=== PATIENT | male | born 1995 | race Hispanic/Latino ===

== ENCOUNTER 2021-07-24 15:08 | Day surgery (SDC) | payer SELFPAY ==
[2021-07-23 15:01] VITALS: BMI 25.0
[2021-07-24 16:18] LABS: #Eosinphils 0.1 thou/uL (0.0-0.7); #Lymphocytes 1.7 thou/uL (1.20-3.40); #Monocytes 0.6 thou/uL (0.11-0.59); #Neutrophils 4.2 thou/uL (1.40-6.50); %Basophils 0.2 % (0.0-1.0); %Eosinophils 1.2 % (0.0-10.0); %Lymphocytes 25.6 % (21.0-51.0); %Monocytes 8.5 % (0.0-10.0); %Neutrophils 64.5 % (42.0-75.0); Hemoglobin 15.8 g/dL (14.0-18.0); Mean Corpuscular HGB CONC 32.7 g/dL (32.0-36.0); Mean Corpuscular Volume 91.7 fL (78.0-98.0); Platelet Count 200 thou/uL (130-400); RBC Distribution Width 11.4 % (11.5-14.5); Red Blood Cell (RBC) Count 5.27 mill/uL (4.70-6.10); White Blood Cell (WBC) Count 6.4 thou/uL (4.8-10.8)
[2021-07-24 17:04] LABS: SARS-CoV-2 NAA Rapid Test Not Detected (NotDetected)
[2021-07-24] MEDS ORDERED: fentaNYL Citrate/PF 100 MCG/2 ML SYRINGE ONE (17:14)
[2021-07-24] MEDS ORDERED: CEFAZOLIN 2 GM VIAL ONE (17:26)
[2021-07-24] MEDS ORDERED: Sodium Chloride 0.9% 100 ML ONE (17:26)
[2021-07-24] MEDS ORDERED: Ketorolac Tromethamine 30 MG/ML VIAL ONE (17:35)
[2021-07-24] MEDS ORDERED: Lidocaine 1% PF 5 ML VIAL ONE (17:35)
[2021-07-24] MEDS ORDERED: Ondansetron PF 4 MG/2 ML Vial ONE (17:35)
[2021-07-24] MEDS ORDERED: Dexamethasone 20 MG/5 ML VIAL ONE (17:35)
[2021-07-24] MEDS ORDERED: PROPOFOL 200 MG/20 ML VIAL ONE (17:35)
[2021-07-24] MEDS ORDERED: PHENYLEPHRINE-NS 100 MCG/ML 10 ML SYRINGE ONE (17:35)
[2021-07-24] MEDS ORDERED: Bupivacaine PF 0.5% 30 ML VIAL ONE (17:42)
[2021-07-24] MEDS ORDERED: Neomycin-Polymyxin 1 ML AMP ONE (17:59)
[2021-07-24] MEDS ORDERED: Bacitracin Zinc Ointment 30 gm TUBE ONE (19:43)
== END 2021-07-24 20:55 | disposition home or self-care (01) ==
LOC: SDC 15:08
PROVIDERS: ATTEND Orthopaedic Surgery Hand Surgery
PROC: 0LQ70ZZ Repair Right Hand Tendon, Open Approach (ICD-10-PCS; principal; 2021-07-24)
DX: S66.120A Laceration of flexor muscle, fascia and tendon of right index finger at wrist and hand level, initial encounter (principal); Z20.822 Contact with and (suspected) exposure to COVID-19; W26.8XXA Contact with other sharp object(s), not elsewhere classified, initial encounter
CPT/HCPCS: 85025; J1100; J1885; J2405; J2704; J3490; S0020; U0002

== ENCOUNTER 2021-12-03 09:06 | Outpatient (CLI) | payer BC ==
[2021-12-03 10:52] LABS: Hemoglobin 15.6 g/dL (13.5-17.5); Mean Corpuscular HGB CONC 33.1 g/dL (32.0-36.0); Mean Corpuscular Hemoglobin 28.7 pg (27.0-33.0); Mean Corpuscular Volume 86.7 fl (81.2-95.1); Mean Platelet Volume 10.7 fl (7.4-10.4); Platelet Count 226 10x3/uL (150-450); RBC Distribution Width 12.5 % (11.5-14.5); Red Blood Cell (RBC) Count 5.43 10x6/uL (4.32-5.72); White Blood Cell (WBC) Count 5.7 10x3/uL (3.5-10.5)
== END 2021-12-03 09:07 | disposition home or self-care (01) ==
LOC: LABBT 09:06
PROVIDERS: ATTEND Orthopaedic Surgery Hand Surgery
DX: Z01.812 Encounter for preprocedural laboratory examination (principal); S56.12 Laceration of flexor muscle, fascia and tendon of other and unspecified finger at forearm level; Z20.822 Contact with and (suspected) exposure to COVID-19
CPT/HCPCS: 85027; 87811